=== PATIENT | male | born 1960 | race American Indian/Alaskan Native ===

== ENCOUNTER 2016-06-29 19:42 | Emergency (ER) | payer SELFPAY ==
[2016-06-29] MEDS ORDERED: D50W (25GM) IV ONE ×2 (20:38→20:51)
--- NOTE | 2016-06-29 20:44 | Emergency Department Report ---
History of Present Illness - General Chief Complaint: Hypoglycemia Stated Complaint: DIZZY Time Seen by Provider: 06/29/16 20:27 Source: patient Mode of arrival: Ambulatory Limitations: No Limitations - History of Present Illness Initial Comments: Patient is a 55-year-old male with history of hypertension, diabetes who presents with an unintentional overdose of his prescription medication. Patient reports he felt he needed tighter BP control so he took an extra tab of all his medications: lisinopril 20mg, glipizide 5 mg, amlodipine 5 mg, metformin 500 mg, Lasix 40 mg. Patient reports he came to the ER because he started to feel dizzy and lightheaded likely secondary to the extra dose of medication. Patient did present with EMS reported he does have a lot of ectopy in route to the hospital with PVCs and PACs. Patient was also noted to have a glucose level in the 50s given half amp of D50 by EMS. Upon arrival to the ER patient continued to have a blood sugar of 5 amp of D50 was given along with juice and food. Currently patient is asymptomatic and is much improved. Otherwise no fevers, chills, headaches, vision change, nausea, vomiting, diarrhea, chest pain, sugars of breath, abdominal pain, extremity pain, difficulty walking, travel, or sick contacts - Related Data Home Medications Medication Instructions Recorded Confirmed Last Taken Furosemide [Lasix TAB] 40 mg PO QDAY 06/29/16 06/29/16 Unknown Lisinopril [Zestril TAB] 20 mg PO QDAY 06/29/16 06/29/16 Unknown Potassium Chloride [K-Dur] 10 meq PO QDAY 06/29/16 06/29/16 Unknown amLODIPine [Norvasc] 5 mg PO QDAY 06/29/16 06/29/16 Unknown glipiZIDE [Glucotrol] 5 mg PO BID 06/29/16 06/29/16 Unknown metFORMIN [Glucophage] 500 mg PO BID 06/29/16 06/29/16 Unknown Allergies Allergy/AdvReac Type Severity Reaction Status Date / Time cephalexin monohydrate Allergy Angioedema Verified 02/08/15 23:25 [From [facility] ED Review of Systems ROS: Stated complaint: DIZZY Other details as noted in HPI Comment: All other systems reviewed and negative ED Past Medical Hx - Past Medical History Previous Medical History?: Yes Hx Hypertension: Yes Hx Congestive Heart Failure: No Hx Diabetes: Yes ("pre-diabetes") Hx Asthma: No Hx COPD: No Hx HIV: No - Surgical History Past Surgical History?: Yes Additional Surgical History: Hernia repair - Social History Smoking Status: Never Smoker - Medications Home Medications: Home Medications Medication Instructions Recorded Confirmed Last Taken Type Furosemide [Lasix TAB] 40 mg PO QDAY 06/29/16 06/29/16 Unknown History Lisinopril [Zestril TAB] 20 mg PO QDAY 06/29/16 06/29/16 Unknown History Potassium Chloride [K-Dur] 10 meq PO QDAY 06/29/16 06/29/16 Unknown History amLODIPine [Norvasc] 5 mg PO QDAY 06/29/16 06/29/16 Unknown History glipiZIDE [Glucotrol] 5 mg PO BID 06/29/16 06/29/16 Unknown History metFORMIN [Glucophage] 500 mg PO BID 06/29/16 06/29/16 Unknown History ED Physical Exam - General Limitations: No Limitations ED Course Vital Signs 06/29/16 06/29/16 06/29/16 19:38 19:40 19:46 Temperature Pulse Rate 69 61 Respiratory 12 22 Rate Blood Pressure 156/74 156/74 O2 Sat by Pulse 94 94 93 Oximetry 06/29/16 06/29/16 06/29/16 19:50 19:56 20:00 Temperature 98.9 F Pulse Rate 61 94 H 81 Respiratory 24 21 22 Rate Blood Pressure 125/60 125/60 125/60 O2 Sat by Pulse 92 94 93 Oximetry 06/29/16 06/29/16 06/29/16 20:06 20:10 20:17 Temperature Pulse Rate 59 L 67 78 Respiratory 21 21 21 Rate Blood Pressure 120/82 120/82 O2 Sat by Pulse 94 91 91 Oximetry 06/29/16 06/29/16 06/29/16 20:21 20:25 20:30 Temperature Pulse Rate 79 76 76 Respiratory 13 20 17 Rate Blood Pressure 143/69 O2 Sat by Pulse 94 95 94 Oximetry 06/29/16 06/29/16 06/29/16 20:35 20:41 20:45 Temperature Pulse Rate 96 H 88 85 Respiratory 18 15 13 Rate Blood Pressure 143/69 143/69 151/76 O2 Sat by Pulse 96 98 96 Oximetry 06/29/16 06/29/16 06/29/16 20:51 20:55 21:01 Temperature Pulse Rate 84 87 78 Respiratory 20 20 28 H Rate Blood Pressure 151/76 151/76 151/76 O2 Sat by Pulse 95 96 95 Oximetry 06/29/16 06/29/16 06/29/16 21:05 21:11 21:15 Temperature Pulse Rate 76 69 83 Respiratory 22 22 19 Rate Blood Pressure 151/76 151/76 151/76 O2 Sat by Pulse 93 94 92 Oximetry 06/29/16 06/29/16 06/29/16 21:21 21:25 21:31 Temperature Pulse Rate 84 74 64 Respiratory 20 12 20 Rate Blood Pressure 151/76 151/76 151/76 O2 Sat by Pulse 84 98 95 Oximetry 06/29/16 06/29/16 06/29/16 21:35 21:41 21:45 Temperature Pulse Rate 63 61 61 Respiratory 21 19 20 Rate Blood Pressure 151/76 151/76 151/76 O2 Sat by Pulse 92 92 91 Oximetry 06/29/16 06/29/16 06/29/16 21:51 21:55 22:01 Temperature Pulse Rate 61 61 64 Respiratory 21 21 21 Rate Blood Pressure 151/76 151/76 151/76 O2 Sat by Pulse 91 90 91 Oximetry 06/29/16 06/29/16 06/29/16 22:05 22:11 22:15 Temperature Pulse Rate 84 63 62 Respiratory 21 21 21 Rate Blood Pressure 129/47 129/47 125/51 O2 Sat by Pulse 89 91 94 Oximetry 06/29/16 06/29/16 06/29/16 22:21 22:25 22:31 Temperature Pulse Rate 76 87 87 Respiratory 20 20 12 Rate Blood Pressure 125/51 125/51 125/51 O2 Sat by Pulse 95 97 92 Oximetry 06/29/16 06/29/16 06/29/16 22:35 22:41 22:45 Temperature Pulse Rate 78 82 82 Respiratory 15 14 14 Rate Blood Pressure 125/51 129/47 129/47 O2 Sat by Pulse 96 97 96 Oximetry 06/29/16 22:51 Temperature Pulse Rate 76 Respiratory 19 Rate Blood Pressure 129/47 O2 Sat by Pulse 96 Oximetry - Reevaluation(s) Reevaluation #1: 06/29/16 22:00 Pt repeat FS's, gave more food and juice, will continue to monitor Repleted potassium with 40meq KCl Reevaluation #2: 06/29/16 23:34 Repeat fs, patient much improved, BP stable. Instructed patient not to take his glyburide tomorrow and to resume the day after. Pt understood ED Medical Decision Making - Lab Data Result diagrams: 06/29/16 21:06 06/29/16 21:06 - EKG Data -: EKG Interpreted by Me - EKG Data 06/29/16 20:54 Time 1943. Sinus rhythm at 64 bpm, PVC, QTc 520 ms, left bundle branch block, left axis deviation, left atrial enlargement, no ST elevations consistent with Sgarbossa criteria, no STEMI Critical care attestation.: If time is entered above; I have spent that time in minutes in the direct care of this critically ill patient, excluding procedure time. ED Disposition Clinical Impression: Accidental overdose, Hypoglycemia Disposition: DISCHARGED TO HOME OR SELFCARE Is pt being admited?: No Condition: Stable Instructions: Diabetic Hypoglycemia (ED) Additional Instructions: PLEASE DO NOT TAKE YOUR GLYBURIDE TODAY AND RESUME IT THE DAY AFTER MAKE SURE YOU EAT WELL WHEN YOU TAKE GLYBURIDE Referrals: PRIMARY CARE, [Primary Care Provider] - 3-5 Days
[2016-06-29 21:24] LABS: Basophils % (Auto) 0.5 % (0.0-1.8); Eosinophils % (Auto) 1.2 % (0.0-4.3); Hemoglobin 14.4 gm/dl (11.8-15.2); Mean Corpuscular HGB Conc 34 % (32-34); Mean Corpuscular Hemoglobin 29 pg (28-32); Mean Corpuscular Volume 87 fl (84-94); Platelet Count 255 K/mm3 (140-440); Red Blood Count 4.96 M/mm3 (3.65-5.03); Red Cell Distribution Width 14.4 % (13.2-15.2); White Blood Count 11.3 K/mm3 (4.5-11.0)
[2016-06-29 21:43] LABS: Anion Gap 18 mmol/L; Blood Urea Nitrogen 15 mg/dL (9-20); Calcium 8.8 mg/dL (8.4-10.2); Carbon Dioxide 27 mmol/L (22-30); Chloride 100.3 mmol/L (98-107); Glucose 136 mg/dL (75-100); Potassium 3.3 mmol/L (3.6-5.0); Sodium 142 mmol/L (137-145)
[2016-06-29] MEDS ORDERED: K-DUR PO ONE (22:17)
[2016-06-29 22:59] VITALS: BP 129/47
[2016-06-29 23:03] LABS: Bilirubin,Urine NEG (Negative); Blood,Urine SM (Negative); Ketones,Urine NEG (Negative); Leukocyte Esterase,Urine NEG (Negative); Mucus,Urine FEW /HPF; Nitrite,Urine NEG (Negative); Protein,Urine <15 mg/dL mg/dL (Negative); Urobilinogen,Urine < 2.0 mg/dL (<2.0); WBC,Urine < 1.0 /HPF (0.0-6.0)
== END 2016-06-30 00:11 | disposition home or self-care (01) ==
LOC: ED 19:42
DX: E11.649 Type 2 diabetes mellitus with hypoglycemia without coma (principal); T65.91XA Toxic effect of unspecified substance, accidental (unintentional), initial encounter; I10 Essential (primary) hypertension; Z88.8 Allergy status to other drugs, medicaments and biological substances; Y92.89 Other specified places as the place of occurrence of the external cause
CPT/HCPCS: 36415; 80048; 81001; 82962; 83735; 84443; 84484; 85025; 93005; 93010; 96374